=== PATIENT | female | born 1965 | race American Indian/Alaskan Native ===

== ENCOUNTER 2018-12-05 15:52 | Outpatient (CLI) | payer OTHER ==
--- NOTE | 2018-12-06 09:24 | Mammography Report ---
BILATERAL DIGITAL SCREENING MAMMOGRAM WITH CAD INDICATION: Screening. COMPARISONS: 01/11/2015 FINDINGS: Craniocaudal and mediolateral oblique views of both breasts were obtained using 2-D digital acquisition. In addition to standard review, the examination was analyzed for possible abnormalities using a computer-assisted detection device (iCAD). The breast tissue is heterogeneously dense, which may obscure small masses. A right asymmetry on the MLO view requires additional imaging. No architectural distortion or suspici ous calcifications. The left breast is negative. IMPRESSION: Right asymmetry requiring additional imaging. Recommend recall for right lateral and spot magnification MLO views and right breast ultrasound if needed. BI-RADS CATEGORY 0: INCOMPLETE - NEED ADDITIONAL IMAGING EVALUATION AND/OR PRIOR MAMMOGRAMS FOR COMP ARISON Information is entered into a reminder system for a target due date for the next mammogram. The resul ts and recommendations were sent to the patient by mail. Signer Name: Ze Osegeura MD Signed: 12/06/2018 9:19 AM Workstation Name: [id number]
== END 2018-12-05 15:53 | disposition home or self-care (01) ==
LOC: SPVWC 15:52
PROVIDERS: ATTEND Urology
DX: Z12.31 Encounter for screening mammogram for malignant neoplasm of breast (principal)
CPT/HCPCS: 77067

== ENCOUNTER 2018-12-21 10:05 | Outpatient (CLI) | payer OTHER ==
--- NOTE | 2018-12-22 08:58 | Mammography Report ---
DIGITAL DIAGNOSTIC MAMMOGRAM WITH CAD, -- 12/21/2018 INDICATION: Recall for asymmetry. TECHNIQUE: Digital right mammographic imaging was performed. Magnification views were obtained. A la teral view was also obtained. This examination was interpreted with the benefit of Computer-aided Det ection analysis. COMPARISON: 12/05/2018 FINDINGS: Breast Density: The breasts are heterogeneously dense, which may obscure small masses. There is no evidence of dominant mass, suspicious calcifications or architectural distortion in the r ight breast. Satisfactory effacement of asymmetry on the spot image and a negative lateral view. IMPRESSION: No mammographic evidence of malignancy. Follow up recommendation: Routine yearly BI-RADS Category 1: Negative. A "normal" or negative report should not discourage follow up or biopsy of a clinically significant f inding. A written summary of these findings will be mailed to the patient. The patient will be entered into a mammography reporting system which will generate a reminder letter for the patient's next appointmen t at the appropriate interval. According to the [employer], yearly mammograms are recommended starting at age 40 and continuing as long as a woman is in good health. Breast MRI is recommended for women with an shabana roximately 20-25% or greater lifetime risk of breast cancer, including women with a strong family his tory of breast or ovarian cancer and women who have been treated for Hodgkin's disease. Signer Name: Ze Oseguera MD Signed: 12/22/2018 8:54 AM Workstation Name: [id number]
== END 2018-12-21 10:06 | disposition home or self-care (01) ==
LOC: SPVWC 10:05
PROVIDERS: ATTEND Urology
DX: N64.89 Other specified disorders of breast (principal)